=== PATIENT | female | born 1960 | race Caucasian/White ===

== ENCOUNTER 2017-10-31 00:15 | Outpatient (CLI) | payer MEDICARE, MEDICAID, SELFPAY ==
--- NOTE | 2017-10-31 10:46 | DI.MRI_ITS ---
SYMPTOMS/DIAGNOSIS: LT LATERAL LEG PAIN, LT EHL WEAKNESS MRI OF THE LUMBAR SPINE: Routine noncontrast examination. Comparison examination is 09/30/16. The conus medullaris has a normal appearance and location. At L 5 - S1 there is disc desiccation. No focal disc herniation or central spinal canal stenosis is seen. There is extension of disc material to the left laterally. This does cause mild narrowing of the left neural foramen but no displacement of the nerve root is seen. There is no right neural foraminal stenosis present. Degenerative changes of the facets are seen. At L 4 - 5 there is again seen grade I spondylolisthesis. No spondylolysis is appreciated. There are hypertrophic changes of the facets and ligament of flavum. There is mild narrowing of the central spinal canal. No neural foraminal stenosis is seen. At L 3 - 4 there is disc desiccation. Endplate degenerative signal changes are present. There is a diffuse bulge. No significant central spinal canal stenosis is seen. Degenerative changes of the facets are present. There is mild narrowing of the right neural foramen but no compression of the nerve root is seen. No left neural foraminal stenosis is seen. At L 2 - 3 there is disc desiccation. No focal disc herniation or central spinal canal stenosis is seen. No significant neural foraminal stenosis is present. At L 1 - 2 there is no focal disc herniation, central spinal or significant neural foraminal stenosis. Apart from the degenerative endplate signal changes, the marrow signal is within normal limits. IMPRESSION: Multi-level degenerative changes in the lumbar spine resulting in multi-level central spinal canal and neural foraminal narrowing. Please see the above discussion for complete details.
== END 2017-10-31 00:35 ==
PROVIDERS: PCP Nurse Practitioner Family; Visit Provider Nurse Practitioner Family
DX: M79.662 Pain in left lower leg (principal); M62.81 Muscle weakness (generalized); M43.17 Spondylolisthesis, lumbosacral region; M47.816 Spondylosis without myelopathy or radiculopathy, lumbar region
CPT/HCPCS: 72148

== ENCOUNTER 2017-11-15 12:39 | Outpatient (CLI) | payer MEDICARE, MEDICAID, SELFPAY ==
[2017-11-15 12:59] VITALS: BP 216/82; PULSE 90; RESP 18; TEMP 37.3; O2SAT 96
--- NOTE | 2017-11-15 13:29 | PDOC.PAIN ---
Pain Clinic Procedure Note Current Active Problems Problem Status Onset Lumbar radiculopathy Acute LUMBAR / SACRAL TRANSFORAMINAL INJECTION NAN PERSON has been referred to the [facility] for a transforaminal nerve root block and steroid injection. COMMENTS: I did review the 11/03/17 evaluation by Ryann Derek. Patient was interviewed and the medical record reviewed. There were no medical, pharmacologic, radiographic or other structural contraindications to attempting fluoroscopically guided transforaminal nerve root block and epidural steroid injection. Risks and expected side effects as well as potential benefit of the procedure were reviewed and voiced concerns addressed. The printed consent form was signed and witnessed. Standard time-out procedure was performed. Patient was placed in the prone position on the fluoroscopy table and automated blood pressure cuff and pulse oximeter applied. Fluoroscopy was utilized to identify the left neural foramen between L5 and S1. A skin juvenal was made for the needle insertion site. A Chlorhexadine prep was carried out, and sterile drapes were applied. Local anesthesia was achieved in the skin and subcutaneous tissues. A 22 gauge curved tip spinal needle was then inserted, advanced with fluoroscopic guidance into the neural foramen, confirmed on the lateral view. After negative aspiration, 2 ml of Omnipaque 240 was injected confirming position in A/P and lateral views. This showed a good spread of dye transforaminally into the epidural space. There was no vascular update with contrast injection under continuous fluoroscopy and digital substraction. 15 mg of Dexamethasone was injected, followed by 0.5 ml of 1% Xylocaine flush for the nerve root block, as well. There was no unusual discomfort expressed.The needle was withdrawn. The patient tolerated the procedure well. A Band-Aid was applied. Vital signs were stable throughout the procedure and were as recorded in nursing records. If given, dosages of intravenous drugs for anxiolysis and analgesia were documented in nursing records. Follow up plans and appointments were discussed. Post procedure instruction was given as documented in nursing records and patient was discharged in the care of an identified route driver coin machines. COMMENTS: This procedure can be completed up to 3 times per 12 months if it is effective. Giovanny Perez DO, MPH [facility] - Subspecialty Board Certification in Pain Medicine CC: Kelly Mejia
--- NOTE | 2017-11-15 13:30 | DI.RAD_ITS ---
SYMPTOMS/DIAGNOSIS: LUMBAR RADICULOPATHY PAIN CLINIC LUMBAR SPINE: Fluoroscopy Time: 24.8 seconds Fluoroscopy was utilized by Dr. Perez during the performance of a lumbar spine injection. Please refer to the procedure report for complete details.
--- NOTE | 2017-11-15 13:32 | PDOC.PAIN_ITS ---
Pain Clinic Procedure Note Current Active Problems Problem Status Onset Lumbar radiculopathy Acute LUMBAR / SACRAL TRANSFORAMINAL INJECTION NAN PERSON has been referred to the [facility] for a transforaminal nerve root block and steroid injection. COMMENTS: I did review the 11/03/17 evaluation by Ryann Derek. Patient was interviewed and the medical record reviewed. There were no medical , pharmacologic, radiographic or other structural contraindications to attempting fluoroscopically guided transforaminal nerve root block and epidural steroid injection. Risks and expected side effects as well as potential benefit of the procedure were reviewed and voiced concerns addressed. The printed consent form was signed and witnessed. Standard time-out procedure was performed. Patient was placed in the prone position on the fluoroscopy table and automated blood pressure cuff and pulse oximeter applied. Fluoroscopy was utilized to identify the left neural foramen between L5 and S1. A skin juvenal was made for the needle insertion site. A Chlorhexadine prep was carried out, and sterile drapes were applied. Local anesthesia was achieved in the skin and subcutaneous tissues. A 22 gauge curved tip spinal needle was then inserted, advanced with fluoroscopic guidance into the neural foramen, confirmed on the lateral view. After negative aspiration, 2 ml of Omnipaque 240 was injected confirming position in A/P and lateral views. This showed a good spread of dye transforaminally into the epidural space. There was no vascular update with contrast injection under continuous fluoroscopy and digital substraction. 15 mg of Dexamethasone was injected, followed by 0.5 ml of 1% Xylocaine flush for the nerve root block, as well. There was no unusual discomfort expressed.The needle was withdrawn. The patient tolerated the procedure well. A Band-Aid was applied. Vital signs were stable throughout the procedure and were as recorded in nursing records. If given, dosages of intravenous drugs for anxiolysis and analgesia were documented in nursing records. Follow up plans and appointments were discussed. Post procedure instruction was given as documented in nursing records and patient was discharged in the care of an identified otr tanker truck driver. COMMENTS: This procedure can be completed up to 3 times per 12 months if it is effective. Giovanny Perez DO, MPH [facility] - Subspecialty Board Certification in Pain Medicine CC: Kelly Mejia
[2017-11-15 13:39] VITALS: BP 125/81; PULSE 82; RESP 16; O2SAT 95
[2017-11-15] MEDS: Omnipaque 240 MG/ML 50 ML BTL IJ (13:40)
[2017-11-15] MEDS: Dexamethasone Sod. Phos./Pres-Free 10 MG/ML VIAL IJ (13:40)
== END 2017-11-15 12:59 ==
PROVIDERS: PCP Nurse Practitioner Family; Visit Provider Preventive Medicine Occupational Medicine
DX: M54.16 Radiculopathy, lumbar region (principal)
CPT/HCPCS: 64483; 72100; Q9967

== ENCOUNTER 2017-12-27 07:31 | Outpatient (CLI) | payer MEDICARE, MEDICAID, SELFPAY ==
--- NOTE | 2017-12-27 06:00 | DI.RAD_ITS ---
SYMPTOM/DIAGNOSIS: LUMBAR SPONDYLOSIS C-ARM: Fluoroscopy Time: 51.2 seconds Images submitted from the pain clinic demonstrate needle positioning over the lower lumbar spine in connection with a lumbar radiofrequency ablation carried out by Dr. Neves. Please see the procedure report for further information.
[2017-12-27 07:37] VITALS: BP 126/85; PULSE 78; RESP 18; TEMP 36.3; O2SAT 98
[2017-12-27] MEDS: Lactated Ringers 1,000 ML 80 ML IV (08:40)
[2017-12-27] MEDS: fentaNYL 100 MCG/2 ML VIAL IVP ×2 (08:42→09:02)
[2017-12-27] MEDS: Midazolam 2 MG/2 ML VIAL IVP (08:42)
[2017-12-27 09:16] VITALS: BP 150/85; PULSE 82; RESP 19; O2SAT 97
[2017-12-27] MEDS: Bupivacaine 0.25% Pres-Free 30 ML VIAL IJ (09:36)
--- NOTE | 2017-12-27 09:37 | PDOC.PAIN ---
Pain Clinic Procedure Note Current Active Problems Problem Status Onset Lumbosacral spondylosis without myelopathy Chronic COOLED LUMBAR/SACRAL MEDIAL BRANCH RADIOFREQUENCY NAN PERSON has been referred to the [facility] for radiofrequency treatment of chronic axial back pain. NAN has had long standing back pain thought to be facet joint generated and which has been refractory to other therapies. Local anesthetic medial branch blocks or intra-articular facet joint injections resulted in NAN reporting reduction of the usual axial component of pain for at least the duration of the local anesthetic effect. COMMENTS: Patient has previously ablation a year ago in [place] her good relief up until recently.. She has also been complaining of radiating down her left lower extremity to her foot. She had an MRI which showed some disc bulging but no obvious compression of the nerve root. On physical exam she has some slight weakness of her EHL on the left. Otherwise neurologically she is intact. She does also have a positive straight leg raise. She had been on gabapentin as well as oral steroids which helped some. She also had a transforaminal injection recently which helped her for a few weeks. I reviewed the patient's MRI with Dr. Poon, radiologist and he confirmed that he also did not see any obvious nerve root compression. The plan today is to proceed with a radiofrequency ablation with the understanding that this should help her back pain but unlikely to help the radicular symptoms. She also complains of knee pain. Patient was interviewed and the medical record reviewed. There were no medical, pharmacologic, radiographic or other structural contraindications to attempting fluoroscopically guided radiofrequency treatment. Risks and expected side effects as well as potential benefit of the procedure were reviewed and voiced concerns addressed. The printed consent form was signed and witnessed. Standard time-out procedure was performed. Patient was placed in the prone position on the fluoroscopy table and automated blood pressure cuff and pulse oximeter applied. The skin entry points for approaching the anatomic target points of the segmental medial branches of {/bilateral: L3, 4, 5} were identified with fluoroscopy and marked. Following thorough Chlorhexadine preparation of the skin and draping and 1% lidocaine infiltration of the skin entry points and subcutaneous tissues, a single 17 guage 10 cm 4mm active tip radiofrequency cannula was placed under fluoroscopic guidance along or across the anatomic course of each respective segmental medial branch. Each placement was stimulated at 50Hz and les then 0.5V for medial branch sensory localization and the at 2Hz and up to 3 times the sensory voltage without any evidence of distal myotomal stimulation. 1cc of 1% ;idocaine was injected at each site. At each placement a continuous mode radiofrequency treatment was done at 90 degrees C for 90secs and then rotated 180degrees and then repeated. This radiofrequency treatment should result in the denervation of the {bilateral L4-5, L5-S1 FACET JOINTS}.~ A total of {4} facets were expected to be denervated from today's treatment. Vital signs were stable throughout the procedure and were as recorded in the docflowsheet by the nursing staff. If given, dosages of intravenous drugs for anxiolysis and analgesia were documented in the Medication Administration Record (MAR). Follow up plans and appointments were discussed. Post procedure instruction was given as documented in the nursing documentation and having met discharge criteria, NAN was discharged from the [facility]. COMMENTS: Fentanyl 100 mcg given. Versed 1 mg given. Patient will follow-up as needed. If she is not better and still having radicular symptoms we will consider repeating MRI and possibly getting nerve studies. We also talked about her seeing Dr. Minnie sandoval at [facility] depending on what workup shows. I will make a referral for orthopedics to as well. CC: Kelly Mejia
--- NOTE | 2017-12-27 09:46 | PDOC.PAIN_ITS ---
Pain Clinic Procedure Note Current Active Problems Problem Status Onset Lumbosacral spondylosis without myelopathy Chronic COOLED LUMBAR/SACRAL MEDIAL BRANCH RADIOFREQUENCY NAN PERSON has been referred to the [facility] for radiofrequency treatment of chronic axial back pain. NAN has had long standing back pain thought to be facet joint generated and which has been refractory to other therapies. Local anesthetic medial branch blocks or intra- articular facet joint injections resulted in NAN reporting reduction of the usual axial component of pain for at least the duration of the local anesthetic effect. COMMENTS: Patient has previously ablation a year ago in [place] her good relief up until recently.. She has also been complaining of radiating down her left lower extremity to her foot. She had an MRI which showed some disc bulging but no obvious compression of the nerve root. On physical exam she has some slight weakness of her EHL on the left. Otherwise neurologically she is intact. She does also have a positive straight leg raise. She had been on gabapentin as well as oral steroids which helped some. She also had a transforaminal injection recently which helped her for a few weeks. I reviewed the patient's MRI with Dr. Poon, radiologist and he confirmed that he also did not see any obvious nerve root compression. The plan today is to proceed with a radiofrequency ablation with the understanding that this should help her back pain but unlikely to help the radicular symptoms. She also complains of knee pain. Patient was interviewed and the medical record reviewed. There were no medical , pharmacologic, radiographic or other structural contraindications to attempting fluoroscopically guided radiofrequency treatment. Risks and expected side effects as well as potential benefit of the procedure were reviewed and voiced concerns addressed. The printed consent form was signed and witnessed. Standard time-out procedure was performed. Patient was placed in the prone position on the fluoroscopy table and automated blood pressure cuff and pulse oximeter applied. The skin entry points for approaching the anatomic target points of the segmental medial branches of {/bilateral: L3, 4, 5} were identified with fluoroscopy and marked. Following thorough Chlorhexadine preparation of the skin and draping and 1% lidocaine infiltration of the skin entry points and subcutaneous tissues, a single 17 guage 10 cm 4mm active tip radiofrequency cannula was placed under fluoroscopic guidance along or across the anatomic course of each respective segmental medial branch. Each placement was stimulated at 50Hz and les then 0.5V for medial branch sensory localization and the at 2Hz and up to 3 times the sensory voltage without any evidence of distal myotomal stimulation. 1cc of 1% ;idocaine was injected at each site. At each placement a continuous mode radiofrequency treatment was done at 90 degrees C for 90secs and then rotated 180degrees and then repeated. This radiofrequency treatment should result in the denervation of the { bilateral L4-5, L5-S1 FACET JOINTS}.~ A total of {4} facets were expected to be denervated from today's treatment. Vital signs were stable throughout the procedure and were as recorded in the docflowsheet by the nursing staff. If given, dosages of intravenous drugs for anxiolysis and analgesia were documented in the Medication Administration Record (MAR). Follow up plans and appointments were discussed. Post procedure instruction was given as documented in the nursing documentation and having met discharge criteria, NAN was discharged from the [facility]. COMMENTS: Fentanyl 100 mcg given. Versed 1 mg given. Patient will follow-up as needed. If she is not better and still having radicular symptoms we will consider repeating MRI and possibly getting nerve studies. We also talked about her seeing Dr. Minnie sandoval at [facility] depending on what workup shows. I will make a referral for orthopedics to as well. CC: Kelly Mejia
== END 2017-12-27 07:51 ==
PROVIDERS: PCP Nurse Practitioner Family; Visit Provider Anesthesiology Pain Medicine
DX: M47.817 Spondylosis without myelopathy or radiculopathy, lumbosacral region (principal); G89.29 Other chronic pain
CPT/HCPCS: 64636; 64635; 72100; J2250; J3010

== ENCOUNTER 2018-11-13 13:06 | Outpatient (REF) | payer MEDICARE, MEDICAID, SELFPAY ==
[2018-11-13 19:04] LABS: COMMENT (LAB VIEW ONLY) 34.88 mg/dL; Microalb ug/mg Crea 6.6 ug/mg Cr
== END 2018-11-13 13:26 ==
LOC: NCHCO 13:06
PROVIDERS: PCP Nurse Practitioner Family; Visit Provider Nurse Practitioner Family
DX: E11.9 Type 2 diabetes mellitus without complications (principal)
CPT/HCPCS: 82043; 82570

== ENCOUNTER 2020-07-30 17:09 | Outpatient (REF) | payer OTHER, MEDICAID, SELFPAY ==
[2020-07-30 20:41] LABS: ALT 30 U/L (14-59); AST 20 U/L (15-37); Albumin 3.8 g/dL (3.4-5.0); Alkaline Phosphatase 101 U/L (46-116); Anion Gap 12.2 mmol/L (3-11); BUN 8 mg/dL (7-18); Bilirubin, Total 0.3 mg/dL (0.2-1.0); CO2 24.8 mmol/L (21.0-32.0); CREATININE 0.7 mg/dL (0.55-1.02); Calcium 9.2 mg/dL (8.5-10.1); Chloride 104 mmol/L (98-107); Glucose 123 mg/dL (74-106); Potassium 4.2 mmol/L (3.5-5.1); Sodium 141 mmol/L (136-145)
[2020-07-30 20:47] LABS: Hemoglobin A1C 7.6 % (<5.7)
== END 2020-07-30 17:10 | disposition home or self-care (01) ==
LOC: NCHCN 17:09
PROVIDERS: PCP Nurse Practitioner Family; Visit Provider Nurse Practitioner Family
DX: E11.9 Type 2 diabetes mellitus without complications (principal); I10 Essential (primary) hypertension
CPT/HCPCS: 80053; 83036

== ENCOUNTER 2020-08-20 18:34 | Outpatient (REF) | payer OTHER, MEDICAID, SELFPAY ==
[2020-08-22 11:47] LABS: COVID-19 RT-PCR UVMMC Result Negative (Negative)
== END 2020-08-20 18:35 | disposition home or self-care (01) ==
LOC: NCHCN 18:34
PROVIDERS: PCP Nurse Practitioner Family; Visit Provider Nurse Practitioner Family
DX: Z20.822 Contact with and (suspected) exposure to COVID-19 (principal)
CPT/HCPCS: U0003; U0005